=== PATIENT | male | born 1985 | race Caucasian/White ===

== ENCOUNTER 2018-01-04 09:38 | Emergency (ER) | payer SELFPAY ==
[~2018-01-04] VITALS: Ht 188 cm; Wt 113.4 kg
[2018-01-04] MEDS ORDERED: Baclofen10 MG PO (10:54)
== END 2018-01-04 10:54 | disposition home or self-care (01) ==
LOC: ER 09:38
DX: M54.5 Low back pain (principal); F17.200 Nicotine dependence, unspecified, uncomplicated
CPT/HCPCS: 72100; 96372; 99283-25; J1885

== ENCOUNTER 2022-01-15 10:41 | Emergency (ER) | payer OTHER ==
[~2022-01-15] VITALS: Ht 190.5 cm; Wt 99.8 kg
[~2022-01-15 10:41] MED LIST: Baclofen10 MG PO
== END 2022-01-15 12:43 | disposition left against medical advice (07) ==
LOC: ER 10:41
DX: R22.0 Localized swelling, mass and lump, head (principal); Z53.21 Procedure and treatment not carried out due to patient leaving prior to being seen by health care provider
CPT/HCPCS: 99281

== ENCOUNTER 2022-12-28 11:58 | Observation (INO) | payer OTHER ==
[2022-12-28] VITALS (9 sets, daily range): BP systolic 103–128; BP diastolic 63–84
[~2022-12-28] VITALS: Ht 188 cm; Wt 94.4 kg
[2022-12-28 13:56] LABS: BASOPHILS ABSOLUTE AUTO 0.04 K/mm3 (0.00-0.23); BASOPHILS PERCENT AUTO 0 % (0-2); EOSINOPHILS ABSOLUTE AUTO 0.03 K/mm3 (0.00-0.68); EOSINOPHILS PERCENT AUTO 0 % (0-6); Hemoglobin 14.6 g/dL (13.5-17.5); IMMATURE GRAN ABSOLUTE AUTO 0.05 K/mm3 (0.00-0.10); IMMATURE GRAN PERCENT AUTO 0 % (0-1); LYMPHOCYTES ABSOLUTE AUTO 1.26 K/mm3 (0.84-5.20); LYMPHOCYTES PERCENT AUTO 8 % (21-46); MONOCYTES ABSOLUTE AUTO 0.79 K/mm3 (0.16-1.47); MONOCYTES PERCENT AUTO 5 % (4-13); Mean Corpuscular HGB 30.2 pg (26.0-34.0); Mean Corpuscular Volume 89 fL (80-100); Mean Platelet Volume 9.4 fL (9.1-12.4); NEUTROPHILS ABSOLUTE AUTO 12.88 K/mm3 (1.96-9.15); NEUTROPHILS PERCENT AUTO 86 % (41-73); Platelet Count 279 K/mm3 (150-400); RDW Coefficient Variation 12.1 % (11.7-14.2); RDW Standard Deviation 39.7 fL (35.1-46.3); Red Blood Cell Count 4.83 M/mm3 (4.30-5.90); White Blood Cell Count 15.05 K/mm3 (4.00-11.30)
[2022-12-28 14:15] LABS: Albumin, Blood 4.4 g/dL (3.4-5.0); Albumin/Globulin Ratio 1.5 (0.8-1.8); Bilirubin, Total 0.5 mg/dL (0.1-1.0); Bun/Creatinine Ratio 15.5 (12.0-20.0); Calcium, Blood 9.2 mg/dL (8.5-10.1); Creatinine, Blood 0.9 mg/dL (0.60-1.20); Potassium, Blood 4.1 mmol/L (3.5-5.5); Total Protein, Blood 7.4 g/dL (6.4-8.2)
--- NOTE | 2022-12-28 15:56 | NUR ---
PT HAS 20G IV TO RIGHT FOREARM THAT FLUSHES WELL AND FLOWS TO GRAVITY.
--- NOTE | 2022-12-28 22:44 | NUR ---
HEMATOMA AT SURGICAL SITE NOTIFIED ABOUT HEMATOMA AT SURGICAL SITE, NEW ORDERS FOR ABD BINDER, ICE APPLICATION, AND BLOOD WORK IN THE MORNING.
[2022-12-29 01:15] VITALS: BP 116/68
[2022-12-29 04:22] VITALS: BP 117/82
--- NOTE | 2022-12-29 05:58 | NUR ---
SHIFT SUMMARY PT A&OX4, AND COOPERATIVE WITH CARE. NO ACUTE CHANGES, VSS. MEDICATED FOR PAIN TWICE WITH OXYCODONE. ZOFRAN TWICE FOR NAUSEA. INDEPENDENT TO BATHROOM. TOLERATING PO INTAKE. HEMATOMA UNDER INCISION SITE, NO DRAINAGE. ABD BINDER/ICE IN PLACE. AT BEDSIDE. CALLS APPROPRIATELY, CALL LIGHT WITHIN REACH.
[2022-12-29 06:22] LABS: BASOPHILS ABSOLUTE AUTO 0.03 K/mm3 (0.00-0.23); BASOPHILS PERCENT AUTO 0 % (0-2); EOSINOPHILS ABSOLUTE AUTO 0.01 K/mm3 (0.00-0.68); EOSINOPHILS PERCENT AUTO 0 % (0-6); Hematocrit 39.6 % (37.0-53.0); Hemoglobin 13.3 g/dL (13.5-17.5); IMMATURE GRAN ABSOLUTE AUTO 0.11 K/mm3 (0.00-0.10); IMMATURE GRAN PERCENT AUTO 1 % (0-1); LYMPHOCYTES PERCENT AUTO 7 % (21-46); MONOCYTES ABSOLUTE AUTO 1.52 K/mm3 (0.16-1.47); MONOCYTES PERCENT AUTO 7 % (4-13); Mean Corpuscular HGB Conc 33.6 g/dL (31.5-36.5); Mean Corpuscular Volume 89 fL (80-100); Mean Platelet Volume 9.9 fL (9.1-12.4); NEUTROPHILS ABSOLUTE AUTO 18.05 K/mm3 (1.96-9.15); NEUTROPHILS PERCENT AUTO 86 % (41-73); Platelet Count 267 K/mm3 (150-400); RDW Coefficient Variation 12.1 % (11.7-14.2); RDW Standard Deviation 39.8 fL (35.1-46.3); Red Blood Cell Count 4.44 M/mm3 (4.30-5.90); White Blood Cell Count 21.12 K/mm3 (4.00-11.30)
[2022-12-29 07:53] VITALS: BP 113/73
[2022-12-29] MEDS ORDERED: OXYC10TA19 PO (11:46)
--- NOTE | 2022-12-29 12:02 | NUR ---
DC'D HOME, DC INSTRUCTIONS GIVEN, VERBALIZED UNDERSTANDING.
== END 2022-12-29 12:12 | disposition home or self-care (01) ==
LOC: ER 11:58 → SURS 15:53 → ER 15:53 → SURS 15:53
PROVIDERS: Physician Assistant; ADMIT Surgery
DX: K42.0 Umbilical hernia with obstruction, without gangrene (principal)
CPT/HCPCS: 36415; 74177; 80053; 83690; 85025; 96372; 96374-59; 96375-59; 96376; 99285-25; A9270; C1781; G0378; J0690; J1100; J1650; J1885; J2405; J2704; J3010; J7030; J7120; Q9967

== ENCOUNTER 2023-01-10 06:59 | Emergency (ER) | payer OTHER ==
[~2023-01-10] VITALS: Ht 188 cm; Wt 95.2 kg
[~2023-01-10 06:59] MED LIST changes: +OXYC10TA19 PO
[2023-01-10 08:45] LABS: BASOPHILS ABSOLUTE AUTO 0.05 K/mm3 (0.00-0.23); BASOPHILS PERCENT AUTO 0 % (0-2); EOSINOPHILS ABSOLUTE AUTO 0.34 K/mm3 (0.00-0.68); EOSINOPHILS PERCENT AUTO 3 % (0-6); Hematocrit 40.6 % (37.0-53.0); Hemoglobin 13.5 g/dL (13.5-17.5); IMMATURE GRAN ABSOLUTE AUTO 0.07 K/mm3 (0.00-0.10); IMMATURE GRAN PERCENT AUTO 1 % (0-1); LYMPHOCYTES ABSOLUTE AUTO 1.92 K/mm3 (0.84-5.20); LYMPHOCYTES PERCENT AUTO 17 % (21-46); MONOCYTES PERCENT AUTO 9 % (4-13); Mean Corpuscular HGB 30.1 pg (26.0-34.0); Mean Corpuscular HGB Conc 33.3 g/dL (31.5-36.5); Mean Corpuscular Volume 91 fL (80-100); Mean Platelet Volume 8.9 fL (9.1-12.4); NEUTROPHILS ABSOLUTE AUTO 7.89 K/mm3 (1.96-9.15); NEUTROPHILS PERCENT AUTO 70 % (41-73); Platelet Count 328 K/mm3 (150-400); RDW Coefficient Variation 12.4 % (11.7-14.2); RDW Standard Deviation 41.4 fL (35.1-46.3); Red Blood Cell Count 4.48 M/mm3 (4.30-5.90); White Blood Cell Count 11.27 K/mm3 (4.00-11.30)
[2023-01-10 09:11] LABS: Albumin, Blood 3.4 g/dL (3.4-5.0); Albumin/Globulin Ratio 1.1 (0.8-1.8); Bilirubin, Total 0.3 mg/dL (0.1-1.0); Bun/Creatinine Ratio 22.7 (12.0-20.0); Calcium, Blood 8.5 mg/dL (8.5-10.1); Creatinine, Blood 0.79 mg/dL (0.60-1.20); Globulin, Blood 3.1 g/dL (2.2-4.0); Potassium, Blood 4.5 mmol/L (3.5-5.5); Total Protein, Blood 6.5 g/dL (6.4-8.2)
[2023-01-10 10:26] VITALS: BP 110/69
== END 2023-01-10 10:38 | disposition home or self-care (01) ==
LOC: ER 06:59
PROVIDERS: Physician Assistant
DX: L76.32 Postprocedural hematoma of skin and subcutaneous tissue following other procedure (principal); F17.200 Nicotine dependence, unspecified, uncomplicated
CPT/HCPCS: 74177; 80053; 85025; 99284-25; Q9967

== ENCOUNTER 2023-01-30 05:21 | Observation (INO) | payer OTHER ==
[~2023-01-30] VITALS: Ht 188 cm; Wt 95.2 kg
[2023-01-30 06:49] LABS: BASOPHILS ABSOLUTE AUTO 0.05 K/mm3 (0.00-0.23); BASOPHILS PERCENT AUTO 1 % (0-2); EOSINOPHILS ABSOLUTE AUTO 0.27 K/mm3 (0.00-0.68); EOSINOPHILS PERCENT AUTO 3 % (0-6); Hematocrit 43.6 % (37.0-53.0); Hemoglobin 14.7 g/dL (13.5-17.5); IMMATURE GRAN ABSOLUTE AUTO 0.03 K/mm3 (0.00-0.10); IMMATURE GRAN PERCENT AUTO 0 % (0-1); LYMPHOCYTES ABSOLUTE AUTO 1.65 K/mm3 (0.84-5.20); LYMPHOCYTES PERCENT AUTO 16 % (21-46); MONOCYTES ABSOLUTE AUTO 1.28 K/mm3 (0.16-1.47); MONOCYTES PERCENT AUTO 12 % (4-13); Mean Corpuscular HGB 30.6 pg (26.0-34.0); Mean Corpuscular HGB Conc 33.7 g/dL (31.5-36.5); Mean Corpuscular Volume 91 fL (80-100); Mean Platelet Volume 9.1 fL (9.1-12.4); NEUTROPHILS ABSOLUTE AUTO 7.03 K/mm3 (1.96-9.15); NEUTROPHILS PERCENT AUTO 68 % (41-73); Platelet Count 258 K/mm3 (150-400); RDW Coefficient Variation 12.1 % (11.7-14.2); RDW Standard Deviation 40.7 fL (35.1-46.3); Red Blood Cell Count 4.81 M/mm3 (4.30-5.90); White Blood Cell Count 10.31 K/mm3 (4.00-11.30)
[2023-01-30 07:31] LABS: Albumin, Blood 4.1 g/dL (3.4-5.0); Albumin/Globulin Ratio 1.3 (0.8-1.8); Bilirubin, Total 0.6 mg/dL (0.1-1.0); Bun/Creatinine Ratio 16.5 (12.0-20.0); Calcium, Blood 9.2 mg/dL (8.5-10.1); Creatinine, Blood 0.85 mg/dL (0.60-1.20); Globulin, Blood 3.2 g/dL (2.2-4.0); Total Protein, Blood 7.3 g/dL (6.4-8.2)
[2023-01-30 10:55] LABS: Calcium, Ionized (POC) 1.17 mmol/L (1.10-1.46); Chloride (POC) 103 mmol/L (98-108); Creatinine (POC) 0.8 mg/dL (0.8-1.3); Glucose (ISTAT POC) 84 mg/dL (70-99); Potassium (POC) 4.3 mmol/L (3.5-5.5); Sodium (POC) 139 mmol/L (135-148); Total CO2 (POC) 25 mmol/L (21-32)
[2023-01-30 12:30] VITALS: BP 125/74
--- NOTE | 2023-01-30 13:01 | NUR ---
ARRIVED FROM THE ER VIA W/C, A&OX4, DENIES ANY PAIN OR N/V, ABD W/ GAUZE DSG AND COBAN NOTED SATURATED WITH DARK SEROUSANG-BROWNISH DRAINAGE, DRESSING CHANGED, GAUZE AND EXUDRY APPLIED W/ MEFIX TAPE, ABD APPEARS SLIGHTLY SWOLLEN W/ PUNCTURE AREA W/ CONSTANT DRAINING OF DARK SEROUSANG.-BROWNISH DRAINAGE, PT STATES ABD WAS "DRAINED" AT DR. KELLY'S OFFICE RECENTLY, DENIES ANY FEVER OR ANY GI SYMPTOMS, CONT. TO MONITOR FOR ANY CHANGES, CHANGE DRESSING PRN.
[2023-01-30 14:24] LABS: Potassium, Blood 4.2 mmol/L (3.5-5.5)
[2023-01-30 16:02] VITALS: BP 100/71
--- NOTE | 2023-01-30 18:50 | NUR ---
ER ADMIT TODAY FOR POST OP COMPLICATION FROM HERNIA SURGERY, ABD CONT. TO DRAIN SEROUSANG-BROWNISH DRAINAGE, ABD DRESSING CHANGED X2 TODAY, INDEPENDENT IN ROOM, PLAN FOR POSSIBLE WOUND WASH OUT TOMORROW BY DR. KELLY PER DR. HIGGINS, DENIES ANY PAIN OR ANY DISCOMFORT, NO ACUTE CHANGES THIS SHIFT.
[2023-01-30 20:06] VITALS: BP 119/72
[2023-01-31] VITALS (15 sets, daily range): BP systolic 97–118; BP diastolic 64–83
--- NOTE | 2023-01-31 07:43 | NUR ---
SHIFT SUMMARY NOC. PT A/O X4. PT RESTED WITH EYES CLOSED T/O THE NIGHT. PT NPO SINCE MIDNIGHT. PT DENIES PAIN. PUNCTURE SITE ON ANTERIOR ABDOMEN HAS SOME SEROSANG DRAINAGE. PT DENIES N/V. FLUIDS RUNNING IN IV.
--- NOTE | 2023-01-31 12:00 | NUR ---
20G IV SITE RAC D&I/PATENT.
--- NOTE | 2023-01-31 14:32 | NUR ---
POST OP ARRIVED FROM PACU VIA KENNETH A&O X4, DENIES ANY PAIN OR ANY DISCOMFORT, EATING LUNCH, ABD W/ KESHAV DRAIN W/ DARK REDDISH BROWN DRAINAGE, DRAIN DSG C/D/I, CONT. TO MONITOR FOR ANY CHANGES, KESHAV DRAIN CARE DISCUSSED W/ PT.
[2023-01-31] MEDS ORDERED: OXYC10TA19 PO (14:50)
--- NOTE | 2023-01-31 16:34 | NUR ---
VSS, TOLERATING SIPS OF CLEAR LIQUIDS WELL, DENIES ANY NAUSEA OR PAIN, AMBULATED DOWN THE ANGELO AND VOIDED WITHOUT DIFFICULTY, ABD DSG C/D/I, PT TEACHING DONE ON KESHAV DRAIN CARE, VERALIZED UNDERSTANDING, PT DC'D HOME, DC INSTRUCTIONS GIVEN, VERBALIZED UNDERSTANDING.
== END 2023-01-31 16:31 | disposition home or self-care (01) ==
LOC: ER 05:21 → SURS 05:22
PROVIDERS: Student in an Organized Health Care Education/Training Program; ADMIT Surgery
DX: K91.870 Postprocedural hematoma of a digestive system organ or structure following a digestive system procedure (principal); Y83.8 Other surgical procedures as the cause of abnormal reaction of the patient, or of later complication, without mention of misadventure at the time of the procedure; F17.210 Nicotine dependence, cigarettes, uncomplicated; Z88.5 Allergy status to narcotic agent
CPT/HCPCS: 36415; 74177; 80047; 80053; 83605; 85014; 85025; 87040; 96365-59; 96366; 96376; 99284-25; G0378; J0295; J1100; J1885; J2250; J2405; J2704; J3010; J7030; J7120; Q9967